=== PATIENT | female | born 1985 | race African-American/Black ===

== ENCOUNTER 2023-02-10 21:22 | Emergency (ER) | payer MEDICAID ==
[~2023-02-10] VITALS: Ht 167.6 cm; Wt 102.0 kg
[2023-02-10 21:44] VITALS: BP 130/62; PULSE 84; RESP 18; TEMP 98.6; O2SAT 100
[2023-02-10] MEDS ORDERED: CETI-89 MT (22:59)
[2023-02-10] MEDS ORDERED: P20 MT (22:59)
[2023-02-10] MEDS ORDERED: TRIA15CR61 TP (22:59)
[2023-02-10] MEDS ORDERED: DIPHENHYDRAMINE 50MG/ML VIAL IM ONE (23:00)
[2023-02-10] MEDS ORDERED: DEXAMETHASONE 4MG TABLET PO ONE (23:00)
[2023-02-10] MEDS ORDERED: DIPHENHYDRAMINE 50MG/ML VIAL IM NR (23:30)
== END 2023-02-11 | disposition home or self-care (01) ==
LOC: ER 21:22
DX: S80.862A Insect bite (nonvenomous), left lower leg, initial encounter (principal); S80.861A Insect bite (nonvenomous), right lower leg, initial encounter; Z98.890 Other specified postprocedural states; W57.XXXA Bitten or stung by nonvenomous insect and other nonvenomous arthropods, initial encounter; Y93.89 Activity, other specified; Y92.89 Other specified places as the place of occurrence of the external cause; Y99.8 Other external cause status
CPT/HCPCS: 96372; 99283; J8540; J1200; Z7610 ×2

== ENCOUNTER 2024-07-11 23:30 | Emergency (ER) | payer MEDICAID, OTHER ==
[~2024-07-11] VITALS: Ht 165.1 cm; Wt 103.0 kg
[~2024-07-11 23:30] MED LIST: CETI-89 MT; P20 MT; TRIA15CR61 TP
[2024-07-11 23:48] VITALS: TEMP 36.7; O2SAT 100
[2024-07-12] MEDS ORDERED: IBUP-2029 MT (00:47)
[2024-07-12] MEDS ORDERED: SULF1TAB48 MT (00:47)
[2024-07-12 01:46] VITALS: BP 137/85; PULSE 80; RESP 16; O2SAT 100
== END 2024-07-12 01:47 | disposition home or self-care (01) ==
LOC: ER 23:30
DX: K60.30 Anal fistula, unspecified (principal); Z98.890 Other specified postprocedural states; Z79.899 Other long term (current) drug therapy
CPT/HCPCS: 99283